=== PATIENT | male | born 2000 | race Two or more races ===

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

== ENCOUNTER 2023-04-10 21:31 | Emergency (ER) | payer OTHER, SELFPAY ==
[2023-04-10 21:32] VITALS: BP 124/75; PULSE 94; RESP 18; TEMP 37.1; O2SAT 100; BMI 22.7
--- NOTE | 2023-04-10 21:39 | EX.ED.GENINJ ---
HPI History of Present Illness Chief Complaint: Laceration Detail of Chief Complaint: Laceration involving right brow and above right brow due to blunt trauma Informant: patient Onset/Context/Timing Onset: Hours Mechanism/Context: Blunt Injury Location of pain/injuries: - (Forehead laceration) Quality of Pain: - (None) Location: Right side of forehead involvement of right brow Current Severity: Mild Maximum Severity: Mild Worsened by: Head but playing soccer Relieved by: Not applicable Associated Symptoms Associated Symptoms: Negative for Parasthesias, Weakness, Loss of function, Inability to ambulate, Loss of consciousness or Amnesia Narrative Narrative: Patient is a 23-year-old male who was playing soccer. He got butted in the head. He had no loss conscious but is not amnestic. He was not dazed. Is on no antithrombotic or anticoagulant. Tetanus is up-to-date. He denies double vision, blurred vision loss of vision. He denies epistaxis. Denies dental pain. [place] neck pain. Denies paresthesia, anesthesia or motor weakness. Tetanus Immunization: <5 years Prior similar symptoms: Yes Recent Illness/Hospitalization: No PFSH PFSH Medical History no medical history no medical history Allergy/AdvReac Type Severity Reaction Status Date / Time No Known Allergies Allergy Verified 04/10/23 21:31 Surgical History no surgical history no surgical history Social History household members: family Smoking Status: Never smoker substance use type: does not use ROS ROS ED Eyes Eyes: Denies blurry vision or change in vision ENT ENT ED: Denies ear pain, rhinorrhea or sore throat Gastrointestinal Gastrointestinal: Denies nausea or vomiting Integumentary Reports other Details: Forehead laceration. Neurologic Neurologic: Denies headache(s) Hematologic/Lymphatic Hematologic/Lymphatic: Denies easy bleeding or easy bruising EXAM Physical Exam Const Vital Signs: 04/10/23 21:32 Temperature 98.8 F Temperature Source Temporal Pulse Rate 94 Respiratory Rate 18 Blood Pressure 124/75 H Blood Pressure Mean 91 Pulse Ox 100 Oxygen Delivery Method Room Air Positive well nourished and well developed General Appearance ED: well developed and NAD HEENT HEENT Narrative: Laceration right side of the forehead with involvement of the brow there is no epistaxis. There is no septal deviation hematoma. There is no dental trauma. trauma and tenderness Nose: Negative for septum abnormal Eyes PERRL and EOMs intact bilaterally General Eye ED: Yes other Other Details: There is no subconjunctival hemorrhage. There is no nystagmus. Neck full ROM Resp normal respiratory effort Cardio regular rhythm and S1 normal heart sound Neuro oriented x3, CN's II-XII intact bilaterally and moves all extremities Dari Coma Scale: document GCS findings Spontaneous Obeys Commands Oriented 15 Psych mental status grossly normal and thought process normal Skin Skin Narrative: Forehead laceration PROC Procedures Other Procedures Procedure(s): She was prepped draped sterile manner. The wound was anesthetized by supra orbital and trochlear nerve block. Wound was irrigated with 200 cc of normal saline. Total of 7 simple interrupted sutures placed. 6-0 Ethilon was used. Patient tolerated procedure. MDM MDM MDM Narrative Medical decision making narrative: Since there is no neck pain or tenderness no imaging neck is indicated. Per the [facility]eless CT head rule and [facility] imaging of the head is not indicated. Laceration will require repair. Tetanus is up-to-date. Discharge Plan Triage Chief Complaint: Laceration ED Provider: Zen Plascencia Dx/Rx/DC Orders Clinical Impression: Forehead contusion, Facial laceration Instructions: ED Laceration, All Closures Primary Care Provider: Care Physician,No Primary Referrals: [facility] [Group of Physicians] - 5 Days for suture removal Care Physician,No Primary [Primary Care Provider] - Activity Restrictions/Additional Instructions: No strenuous activities for the next several days 2. Keep wound clean and dry 3. Apply bacitracin ointment 3 times a day Disposition Disposition: Home, Self Care
[2023-04-10] MEDS: Lidocaine 1% (20 ml mdv) 20 ML Vial INFILT (21:49)
[2023-04-10 22:22] VITALS: BP 124/75; PULSE 94; RESP 18; TEMP 37.1; O2SAT 100
== END 2023-04-10 22:23 | disposition home or self-care (01) ==
PROVIDERS: Emergency Provider Emergency Medicine; Visit Provider Emergency Medicine
DX: S01.81XA Laceration without foreign body of other part of head, initial encounter (principal); S01.111A Laceration without foreign body of right eyelid and periocular area, initial encounter; Y93.66 Activity, soccer
CPT/HCPCS: 12011; 99283